=== PATIENT | female | born 1955 | race Caucasian/White ===

== ENCOUNTER → 2018-07-21 15:48 | Outpatient (CLI) | payer SELFPAY ==
--- NOTE | 2018-07-21 16:00 | XR_ITS ---
XR chest employee HISTORY: Positive TB skin test ITS.REASON: + FOR TB REACTOR ORDERING PHYSICIAN: Referral Provider, PATIENT AGE: 63 years COMPARISON: None FINDINGS: The cardiomediastinal silhouette and pulmonary vascularity are within normal limits. The lungs are clear without infiltrates, suspicious nodules, or pleural effusions. No evidence of active aneurysm this process No acute bony abnormalities. IMPRESSION: Negative chest, no acute finding
== END ==
DX: R76.11 Nonspecific reaction to tuberculin skin test without active tuberculosis (principal)

== ENCOUNTER → 2018-09-23 15:23 | Outpatient (POV) | payer OTHER, SELFPAY | PROVIDERS: Visit Provider Dermatology | DX: Z00.00 Encounter for general adult medical examination without abnormal findings (principal) ==

== ENCOUNTER → 2018-09-30 16:48 | Outpatient (CLI) | payer OTHER, SELFPAY ==
[2018-09-30 19:01] LABS: Creatinine,Urine Random 126 mg/dL (20-320)
[2018-09-30 19:31] LABS: Alanine Aminotransferase 30 U/L (12-78); Alkaline Phosphatase 80 U/L (46-116); Anion Gap 16.1 mEq/L (5-15); Aspartate Amino Transferase 13 U/L (15-37); Bilirubin,Total 0.2 mg/dL (0.2-1.0); Blood Urea Nitrogen 19 mg/dL (7-18); Calcium 9.2 mg/dL (8.5-10.1); Carbon Dioxide 24 mmol/L (21.0-32.0); Chloride 103 mmol/L (98-107); Cholesterol 237 mg/dL (140-200); Creatinine,Serum 0.63 mg/dL (0.55-1.02); Estimated Glomerular Filt Rate 95 ml/min (>60); GFR (African American) 115 ML/MIN (>60); Globulin 3.9 gm/dl (1.3-3.2); Glucose 91 mg/dL (74-106); HDL Cholesterol 47 mg/dL (29-89); LDL Cholesterol 164 mg/dL (0-130); Potassium 4.1 mmoL/L (3.5-5.1); Sodium 139 mmol/L (136-145); Thyroid Stimulating Hormone 2.25 uIU/ml (0.358-3.740); Total Protein,Serum 7.9 gm/dL (6.4-8.2); Triglycerides 129 mg/dL (30-200); Uric Acid 6.4 mg/dL (2.6-7.2); VLDL Cholesterol 26 mg/dL (0-40)
[2018-10-03 08:08] LABS: Vitamin D 25 Hydroxy 31.5 ng/mL (30.0-100.0)
[2018-10-03 08:09] LABS: Microalbumin, Urine 7.1 ug/mL (Not Estab.)
== END ==
PROVIDERS: Visit Provider Family Medicine
DX: I10 Essential (primary) hypertension (principal); E78.00 Pure hypercholesterolemia, unspecified; E55.9 Vitamin D deficiency, unspecified
CPT/HCPCS: 36415; 80053; 80061; 82043; 82570; 82652; 84443; 84550

== ENCOUNTER → 2018-10-31 20:22 | Outpatient (CLI) | payer OTHER, SELFPAY | PROVIDERS: PCP Family Medicine; Visit Provider Family Medicine | DX: G47.33 Obstructive sleep apnea (adult) (pediatric) (principal) | CPT/HCPCS: 95811 ==

== ENCOUNTER → 2018-12-24 17:30 | Outpatient (CLI) | payer OTHER, SELFPAY | PROVIDERS: Visit Provider Podiatrist | DX: B35.1 Tinea unguium (principal) | CPT/HCPCS: 87102; 87206; 87220 ==

== ENCOUNTER → 2018-12-30 16:36 | Outpatient (CLI) | payer OTHER, SELFPAY | PROVIDERS: PCP Family Medicine; Visit Provider Specialist | DX: G47.33 Obstructive sleep apnea (adult) (pediatric) (principal) | CPT/HCPCS: 94762 ==

== ENCOUNTER → 2019-03-06 07:28 | Outpatient (CLI) | payer OTHER, SELFPAY ==
[2019-03-06 08:12] LABS: Anion Gap 13.1 mEq/L (5-15); Blood Urea Nitrogen 22 mg/dL (7-18); Calcium 9.7 mg/dL (8.5-10.1); Carbon Dioxide 28 mmol/L (21.0-32.0); Chloride 104 mmol/L (98-107); Creatinine,Serum 0.86 mg/dL (0.55-1.02); Estimated Glomerular Filt Rate 66 ml/min (>60); GFR (African American) 80 ML/MIN (>60); Glucose 101 mg/dL (74-106); Potassium 4.1 mmoL/L (3.5-5.1); Sodium 141 mmol/L (136-145)
[2019-03-06 08:23] LABS: Basophils # 0.1 K/mm3 (0-0.2); Basophils % 0.5 % (0.1-2.0); Eosinophils # 0.2 K/mm3 (0.0-0.4); Eosinophils % 1.7 % (0.1-12.0); Hematocrit 40.4 % (37.0-47.0); Lymphocytes # 3.3 K/mm3 (0.7-4.5); Mean Corpuscular HGB Conc 32.1 g/dL (31.8-35.4); Mean Corpuscular Hemoglobin 29.8 pg (27.0-31.2); Mean Corpuscular Volume 92.8 fl (81-99); Monocytes # 0.4 K/mm3 (0.1-1.0); Monocytes % 4.3 % (1.7-9.3); Neutrophils # 6.1 K/mm3 (1.8-7.8); Neutrophils % 60.5 % (37.0-80.0); Platelet Count 226 K/mm3 (142-424); Red Blood Count 4.35 M/mm3 (4.20-5.40); White Blood Count 10.1 K/mm3 (4.8-10.8)
== END ==
PROVIDERS: Visit Provider Internal Medicine
DX: I25.10 Atherosclerotic heart disease of native coronary artery without angina pectoris (principal); I10 Essential (primary) hypertension; E78.2 Mixed hyperlipidemia; R06.02 Shortness of breath
CPT/HCPCS: 36415; 80048; 85025

== ENCOUNTER 2019-03-19 16:13 | Outpatient (RCR) | payer OTHER, SELFPAY | END 2019-04-27 13:21 | disposition home or self-care (01) | LOC: PT 16:13 | PROVIDERS: Visit Provider Internal Medicine Cardiovascular Disease | DX: I25.10 Atherosclerotic heart disease of native coronary artery without angina pectoris (principal); I10 Essential (primary) hypertension; E78.2 Mixed hyperlipidemia | CPT/HCPCS: 93798 ==

== ENCOUNTER → 2019-04-03 07:46 | Outpatient (CLI) | payer OTHER, SELFPAY ==
[2019-04-03 08:47] LABS: Alanine Aminotransferase 32 U/L (12-78); Albumin Level 3.7 gm/dL (3.4-5.0); Alkaline Phosphatase 76 U/L (46-116); Aspartate Amino Transferase 14 U/L (15-37); Bilirubin,Direct 0.1 mg/dL (0.0-0.2); Bilirubin,Indirect 0.3 mg/dL (0.0-0.9); Bilirubin,Total 0.4 mg/dL (0.2-1.0); Chol/HDL Ratio 2.7 (1-3.5); Cholesterol 135 mg/dL (140-200); HDL Cholesterol 50 mg/dL (29-89); LDL Cholesterol 65 mg/dL (0-130); Total Protein,Serum 7.2 gm/dL (6.4-8.2); Triglycerides 102 mg/dL (30-200); VLDL Cholesterol 20 mg/dL (0-40)
== END ==
PROVIDERS: Visit Provider Internal Medicine Cardiovascular Disease
DX: E78.2 Mixed hyperlipidemia (principal); I25.10 Atherosclerotic heart disease of native coronary artery without angina pectoris; I10 Essential (primary) hypertension
CPT/HCPCS: 36415; 80061; 80076

== ENCOUNTER → 2019-08-04 08:02 | Outpatient (CLI) | payer OTHER, SELFPAY ==
[2019-08-04 09:54] LABS: Alanine Aminotransferase 24 U/L (12-78); Alkaline Phosphatase 69 U/L (38-126); Aspartate Amino Transferase 24 U/L (14-36); Bilirubin,Indirect 0.3 mg/dL (0.0-0.9); Bilirubin,Total 0.3 mg/dl (0.2-1.3); Bilirubin,Unconjugated 0.5 mg/dL (0.0-1.1); Cholesterol 185 mg/dl (140-200); Total Protein,Serum 6.9 g/dl (6.3-8.2); Triglycerides 131 mg/dl (30-150); VLDL Cholesterol 26 mg/dL (0-40)
[2019-08-04 09:55] LABS: Chol/HDL Ratio 3.6 (1-3.5); HDL Cholesterol 51 mg/dl (40-60)
== END ==
PROVIDERS: Visit Provider Urology
DX: E78.5 Hyperlipidemia, unspecified (principal); G47.33 Obstructive sleep apnea (adult) (pediatric); I10 Essential (primary) hypertension; I25.10 Atherosclerotic heart disease of native coronary artery without angina pectoris; Z99.89 Dependence on other enabling machines and devices
CPT/HCPCS: 36415; 80061; 80076

== ENCOUNTER → 2019-08-07 14:51 | Outpatient (CLI) | payer OTHER, SELFPAY ==
--- NOTE | 2019-08-07 14:52 | CA_ITS ---
APPROVED REPORT Marketing Consultant: MANNY Laterality: Bilateral Study Quality: Good Indications: cad, family Hx, bruit on exam Doppler Spectral Velocity Analysis dICA (R) 93.30/34.30 cm/s dICA (L) 110.70/36.90 cm/s Neil (R) 98.60/29.90 cm/s Neil (L) 104.60/30.80 cm/s pICA (R) 91.80/34.30 cm/s pICA (L) 145.60/55.90 cm/s dCCA (R) 129.00/43.80 cm/s dCCA (L) 84.70/28.90 cm/s pCCA (R) 118.80/38.30 cm/s pCCA (L) 84.50/32.40 cm/s Vert (R) 55.10/15.70 cm/s Vert (L) 57.40/13.10 cm/s ICA/CCA 0.80 ICA/CCA 1.70 Findings The right carotid arterial system appeared to be normal without stenosis of the bulb or internal carotid artery. The left carotid arterial system appeared to be normal without stenosis of the bulb or internal carotid artery. Antegrade flow seen bilateral vertebral arteries. Technically difficult exam secondary to patient's ability to lie on back and continually swallowing making it difficult to keep doppler in vessels Conclusion No increased velocities to suggest hemodynamically significant stenosis in either internal carotid artery. Electronically signed by : Miguel Garibay MD 08/07/2019 15:51:26
== END ==
PROVIDERS: PCP Family Medicine; Visit Provider Physician Assistant
DX: R09.89 Other specified symptoms and signs involving the circulatory and respiratory systems (principal)
CPT/HCPCS: 93880

== ENCOUNTER → 2020-02-02 09:36 | Outpatient (CLI) | payer MEDICARE, SELFPAY ==
[2020-02-02 10:14] LABS: Basophils % 0.4 % (0.1-2.0); Eosinophils # 0.1 K/mm3 (0.0-0.4); Eosinophils % 1.5 % (0.1-12.0); Hematocrit 39.3 % (37.0-47.0); Lymphocytes # 3.2 K/mm3 (0.7-4.5); Mean Corpuscular HGB Conc 35.5 g/dL (31.8-35.4); Mean Corpuscular Hemoglobin 31.6 pg (27.0-31.2); Mean Corpuscular Volume 89.2 fl (81-99); Mean Platelet Volume 8.2 fl (7.4-10.4); Monocytes # 0.5 K/mm3 (0.1-1.0); Neutrophils # 5.4 K/mm3 (1.8-7.8); Neutrophils % 58.1 % (37.0-80.0); Platelet Count 221 K/mm3 (142-424); Red Blood Count 4.41 M/mm3 (4.20-5.40); Red Cell Distribution Width 13.9 % (11.5-17.5); White Blood Count 9.2 K/mm3 (4.8-10.8)
[2020-02-02 10:58] LABS: Alanine Aminotransferase 29 U/L (12-78); Albumin Level 4.4 g/dl (3.5-5.0); Alkaline Phosphatase 93 U/L (38-126); Aspartate Amino Transferase 30 U/L (14-36); Bilirubin,Direct 0.1 mg/dl (0.0-0.4); Bilirubin,Indirect 0.4 mg/dL (0.0-0.9); Bilirubin,Total 0.5 mg/dl (0.2-1.3); Bilirubin,Unconjugated 0.4 mg/dL (0.0-1.1); Chol/HDL Ratio 3.2 (1-3.5); Cholesterol 162 mg/dl (140-200); HDL Cholesterol 51 mg/dl (40-60); Total Protein,Serum 7.6 g/dl (6.3-8.2); Triglycerides 176 mg/dl (30-150); VLDL Cholesterol 35 mg/dL (0-40)
[2020-02-02 10:59] LABS: Anion Gap 13.7 mEq/L (5-15); Blood Urea Nitrogen 18 mg/dl (7-17); Calcium 10.2 mg/dl (8.4-10.2); Carbon Dioxide 32 mmol/L (22.0-30.0); Chloride 97 mmol/L (98-107); Estimated Glomerular Filt Rate 84 ml/min (>60); GFR (African American) 102 ML/MIN (>60); Glucose 113 mg/dl (74-100); Potassium 3.7 mmoL/L (3.5-5.1); Sodium 139 mmol/L (136-145)
[2020-02-02 11:09] LABS: Direct LDL Cholesterol 85.44 mg/dL (100-129)
== END ==
PROVIDERS: Physician Assistant; Visit Provider Urology
DX: E78.2 Mixed hyperlipidemia (principal); G47.33 Obstructive sleep apnea (adult) (pediatric); I10 Essential (primary) hypertension; I25.10 Atherosclerotic heart disease of native coronary artery without angina pectoris; R06.02 Shortness of breath; R11.0 Nausea; R53.1 Weakness; R53.83 Other fatigue; R60.9 Edema, unspecified; Z87.891 Personal history of nicotine dependence; Z99.89 Dependence on other enabling machines and devices; E78.5 Hyperlipidemia, unspecified; Z79.899 Other long term (current) drug therapy
CPT/HCPCS: 36415; 80048; 80061; 80076; 85025

== ENCOUNTER → 2020-09-20 08:29 | Outpatient (POV) | payer MEDICARE, SELFPAY | PROVIDERS: Visit Provider Dermatology | DX: Z00.00 Encounter for general adult medical examination without abnormal findings (principal) ==

== ENCOUNTER → 2020-10-03 07:20 | Outpatient (CLI) | payer MEDICARE, SELFPAY ==
--- NOTE | 2020-10-03 07:26 | NM_ITS ---
APPROVED REPORT Exam: Nuclear Stress Test Indication: OBESITY, HTN, HYPERLIPIDEMIA,FM HX, C.P., SOB Patient Location: Outpatient Stress Tech: Stephanie Adhikari [facility] Tech:Indigo Moy ARRT RT (R)(N)(M) Ht: 5 ft 2 in Wt: 256 lbs Bra Size: DD HR: 74 bpm BP: 130/68 mmHg BSA: 2.12 m2 BMI: 46.8 History: OBESITY, HTN, HYPERLIPIDEMIA,FM HX, C.P., SO Procedure: Patient received a 0.4 mg of intravenous Lexiscan, resting heart rate 74 bpm, resting blood pressure 130/68 mmHg, with Lexiscan maximum heart rate achived was 99 bpm which is Less than 85 % of the maximum predicted heart rate and blood pressure was 157/78 mmHg. PT C/O C.P. Electrocardiogram Resting electrocardiogram showed sinus rhythm, with Lexiscan there is less than 1.[address] segment depression noted from the baseline EKG. The EKG portion of the Lexiscan is nondiagnostic. Cardiac Stress and Resting SPECT Images: Cardiac Stress and Resting SPECT images were obtained using technetium 99m Myoview 31.9 mCi stress and 10.21 mCi at rest. Gated SPECT for analysis of segmental wall motion and calculation of the ejection fraction also done. Cardiac stress and resting SPECT images show uniform myocardial activity without segmental perfusion abnormality, computer derived ejection fraction is over 65% with no regional wall motion abnormality, right ventricle is normal size and contractility. Conclusion: 1. The EKG portion of the Lexiscan is nondiagnostic. 2. No scintigraphic evidence of reversible ischemia seen, computer derived ejection fraction is over 65% with no regional wall motion abnormality, right ventricle is normal size and contractility. 3. Normal Lexiscan Myoview study. Electronically signed by : Aleksey Wakefield, 10/03/2020 17:26:01
--- NOTE | 2020-10-03 09:46 | CA_ITS ---
APPROVED REPORT EXAM: Comprehensive 2D, Doppler, and color-flow Echocardiogram Lens Mold Setter: Jodie Antunez RT(R) Ht: 5 ft 2 in Wt: 256lbs BSA: 2.12 BP: 161/98 mmHg Indications: SOB, CP, ex smoker, fatigue, edema, HTN, hyperlipidemia, EUSEBIO, CAD, GERD 2D Dimensions LVOT 2.02 cm (M/F) 1.5-2.5 LA Volume 32.90 mL LA Volume Index 15.51 mL/m2 (M/F) 16-34 M-Mode Dimensions RVDd 2.61 cm (0.9-2.6) LA Diam 3.67 cm (1.9-4.0) LVDd 5.06 cm (3.5-5.7) Ao Diam 2.50 cm (2.0-3.7) LVDs 3.74 cm (3.5-5.7) IVSd 0.80 cm (0.6-1.1) PWd 0.96 cm (0.6-1.1) EF (Teich) 51.00% FS 26.10% EDV (Teich) 121.60 mL ESV (Teich) 59.60 mL LV Diastology E Decel Time 250.00 (160-240 msec) E/A Ratio 0.8 MED E' 4.70 (< 7 cm/sec) E'/MED E' Ratio 17.09 (>14) LAT E' 7.20 (<10 cm/sec) E/LAT E' Ratio 11.15 (>14) Mitral Valve MV E Max Juan. 80.00 (40-130 cm/s) MV A Velocity 96.00 (40-130 cm/s) E/A Ratio 0.84 MV Decel. Time 250.00 (160-240 ms) MV PHT 73.00 ms Left Ventricle Left atrium is mildly enlarged, left ventricle is normal size, mild concentric left ventricular hypertrophy, visually estimated ejection fraction 55% with no regional wall motion abnormality, grade 1 diastolic dysfunction seen without tissue Doppler evidence of raise left atrial pressure. Right Ventricle Right atrium and right ventricle are normal size and contractility. Aortic Valve Aortic valve is minimally thickened and fibrosed, there is no aortic stenosis or aortic insufficiency. Mitral Valve Mitral valve grossly normal, there is trace mitral regurgitation. Tricuspid Valve Tricuspid grossly normal, there is trace tricuspid regurgitation, tricuspid regurgitation jet velocity is inadequate for calculation of the right ventricular systolic pressure. Pulmonic Valve Pulmonic valve is poorly visualized. Great Vessels Aortic root is normal size. Pericardium No significant pericardial effusion noted. Conclusion 1. Mildly enlarged left atrium, normal left ventricular size, mild concentric left ventricular hypertrophy, visually estimated ejection fraction 55% with no regional wall motion abnormality, grade 1 diastolic dysfunction seen without tissue Doppler evidence of raise left atrial pressure. 2. Trace mitral and tricuspid regurgitation. 3. No significant pericardial effusion noted. Electronically signed by : Aleksey Wakefield, 10/03/2020 14:02:28
--- NOTE | 2020-10-03 09:47 | CA_ITS ---
APPROVED REPORT Exam: Pharmacologic Technologist: Stephanie Adhikari, Ht: 5 ft 2 in Wt: 256 lbs BSA: 2.12 m2 HR: 74 bpm BP: 130/68 mmHg Medical History Medications: Aspirin,,,,, Losartan,,,,, Atorvastatin,,,,, HCTZ,,,,, CloPIdogrel,,,,, Toprol XL,,,,, Stress Test Details Test: LEXISCAN HR Resting HR: 74 bpm Max Heart Rate (APMHR): 154.990984 bpm Max HR Achieved: 108 bpm Target HR (85% APMHR): 130.325516 bpm % of APMHR: 70.13 Recovery HR: 81 bpm BP Resting BP: 130/68 mmHg Max BP: 157/78 mmHg Recovery BP: 129.0/75.0 mmHg ECG Resting ECG: NSR Clinical Reason for Termination: Completed Protocol Exercise duration: 04:01 min Highest Stage Achieved: Stress ECG Conclusion Symptoms: Chest tightness. Chest tightness improved. Arrythmias/Ectopy: None ST-T Changes: <1.5mm ST Segment changes. Conclusion: Non-Diagnostic Electronically signed by : Aleksey Wakefield, 10/03/2020 15:03:47
== END ==
PROVIDERS: PCP Family Medicine; Visit Provider Internal Medicine Cardiovascular Disease
DX: E78.2 Mixed hyperlipidemia (principal); G47.33 Obstructive sleep apnea (adult) (pediatric); I10 Essential (primary) hypertension; I25.10 Atherosclerotic heart disease of native coronary artery without angina pectoris; R06.02 Shortness of breath; R11.0 Nausea; R53.1 Weakness; R53.83 Other fatigue; R60.9 Edema, unspecified; Z87.891 Personal history of nicotine dependence; Z99.89 Dependence on other enabling machines and devices
CPT/HCPCS: 78452; 93017; 93306; A9502; J2785

== ENCOUNTER → 2020-10-11 10:31 | Outpatient (CLI) | payer MEDICARE, SELFPAY ==
[2020-10-11 11:09] LABS: Chloride 101 mmol/L (98-107); Sodium 139 mmol/L (136-145)
[2020-10-11 11:10] LABS: Potassium 3.7 mmoL/L (3.5-5.1)
[2020-10-11 11:12] LABS: Blood Urea Nitrogen 18 mg/dl (7-17); Estimated Glomerular Filt Rate 100 ml/min (>60); GFR (African American) 121 ML/MIN (>60)
[2020-10-11 11:13] LABS: Anion Gap 11.7 mEq/L (5-15); Calcium 9.9 mg/dl (8.4-10.2); Carbon Dioxide 30 mmol/L (22.0-30.0); Glucose 117 mg/dl (74-100)
[2020-10-11 11:23] LABS: NT Pro Brain Natriuretic Pep. 34.8 pg/mL (0-125)
== END ==
PROVIDERS: Visit Provider Internal Medicine Cardiovascular Disease
DX: E78.2 Mixed hyperlipidemia (principal); I10 Essential (primary) hypertension; I25.10 Atherosclerotic heart disease of native coronary artery without angina pectoris; R06.02 Shortness of breath; R53.1 Weakness; R53.83 Other fatigue; R60.9 Edema, unspecified; Z87.891 Personal history of nicotine dependence
CPT/HCPCS: 36415; 80048; 83880

== ENCOUNTER → 2020-10-27 09:58 | Outpatient (CLI) | payer MEDICARE, SELFPAY ==
[2020-10-27 10:44] LABS: Anion Gap 10.7 mEq/L (5-15); Blood Urea Nitrogen 15 mg/dl (7-17); Calcium 9.3 mg/dl (8.4-10.2); Carbon Dioxide 28 mmol/L (22.0-30.0); Chloride 103 mmol/L (98-107); Creatine Kinase 137 U/L (30-135); Estimated Glomerular Filt Rate 84 ml/min (>60); GFR (African American) 101 ML/MIN (>60); Glucose 196 mg/dl (74-100); Potassium 3.7 mmoL/L (3.5-5.1); Sodium 138 mmol/L (136-145)
== END ==
PROVIDERS: Visit Provider Physician Assistant
DX: E66.01 Morbid (severe) obesity due to excess calories (principal); E78.5 Hyperlipidemia, unspecified; G47.33 Obstructive sleep apnea (adult) (pediatric); I10 Essential (primary) hypertension; I25.10 Atherosclerotic heart disease of native coronary artery without angina pectoris; M79.89 Other specified soft tissue disorders; Z99.89 Dependence on other enabling machines and devices; R06.02 Shortness of breath; R07.9 Chest pain, unspecified; R53.1 Weakness; R53.83 Other fatigue; R60.9 Edema, unspecified; Z87.891 Personal history of nicotine dependence; Z68.42 Body mass index [BMI] 45.0-49.9, adult
CPT/HCPCS: 36415; 80048; 82550

== ENCOUNTER → 2021-10-13 11:00 | Outpatient (CLI) | payer MEDICARE, SELFPAY ==
[2021-10-13 11:51] LABS: Basophils # 0.1 K/mm3 (0-0.2); Basophils % 1.3 % (0.1-2.0); Eosinophils # 0.1 K/mm3 (0.0-0.4); Eosinophils % 1.1 % (0.1-12.0); Hematocrit 39.8 % (37.0-47.0); Hemoglobin 13.4 g/dL (12.2-16.2); Lymphocytes # 3.3 K/mm3 (0.7-4.5); Mean Corpuscular HGB Conc 33.7 g/dL (31.8-35.4); Mean Corpuscular Hemoglobin 31.1 pg (27.0-31.2); Mean Corpuscular Volume 92.1 fl (81-99); Mean Platelet Volume 8.8 fl (7.4-10.4); Monocytes # 0.5 K/mm3 (0.1-1.0); Monocytes % 5.5 % (1.7-9.3); Neutrophils # 5.5 K/mm3 (1.8-7.8); Platelet Count 238 K/mm3 (142-424); Red Blood Count 4.32 M/mm3 (4.20-5.40); Red Cell Distribution Width 14.2 % (11.5-17.5); White Blood Count 9.6 K/mm3 (4.8-10.8)
[2021-10-13 12:36] LABS: Alanine Aminotransferase 38 U/L (12-78); Albumin Level 4.2 g/dl (3.5-5.0); Alkaline Phosphatase 90 U/L (38-126); Anion Gap 10.9 mEq/L (5-15); Aspartate Amino Transferase 38 U/L (14-36); Bilirubin,Indirect 0.2 mg/dL (0.0-0.9); Bilirubin,Total 0.2 mg/dl (0.2-1.3); Bilirubin,Unconjugated 0.5 mg/dL (0.0-1.1); Blood Urea Nitrogen 19 mg/dl (7-17); Calcium 10.4 mg/dl (8.4-10.2); Carbon Dioxide 31 mmol/L (22.0-30.0); Chloride 100 mmol/L (98-107); Cholesterol 139 mg/dl (140-200); Estimated Glomerular Filt Rate 83 ml/min (>60); GFR (African American) 101 ML/MIN (>60); Glucose 156 mg/dl (74-100); HDL Cholesterol 46 mg/dl (40-60); Magnesium 1.8 mg/dl (1.6-2.3); Potassium 3.9 mmoL/L (3.5-5.1); Sodium 138 mmol/L (136-145); Total Protein,Serum 6.8 g/dl (6.3-8.2); Triglycerides 144 mg/dl (30-150); VLDL Cholesterol 29 mg/dL (0-40)
[2021-10-13 12:44] LABS: NT Pro Brain Natriuretic Pep. 30.3 pg/mL (0-125)
[2021-10-13 12:47] LABS: Direct LDL Cholesterol 65.06 mg/dL (100-129)
[2021-10-13 12:51] LABS: Free T4 (Free Thyroxine) 0.87 ng/dl (0.78-2.19)
[2021-10-13 13:06] LABS: Thyroid Stimulating Hormone 3.55 uIU/mL (0.465-4.68)
== END ==
PROVIDERS: Visit Provider Internal Medicine Cardiovascular Disease
DX: I10 Essential (primary) hypertension (principal); I34.0 Nonrheumatic mitral (valve) insufficiency; I51.9 Heart disease, unspecified; R53.83 Other fatigue; R06.09 Other forms of dyspnea
CPT/HCPCS: 36415; 80048; 80061; 80076; 83735; 83880; 84439; 84443; 85025

== ENCOUNTER 2022-08-18 18:05 | Emergency (ER) | payer MEDICARE, SELFPAY ==
[2022-08-18 18:15] VITALS: BP 145/88; PULSE 93; RESP 18; TEMP 37; O2SAT 97; BMI 45.7
[2022-08-18 18:37] LABS: Apearance,Urine Cloudy (Clear); Bilirubin,Urine 2+ (Negative); Blood, Urine 3+ (Negative); Color,Urine Red (Yellow); Glucose,Urine (UA) 100 (Negative); Ketones,Urine TRACE (Negative); Protein,Urine 3+ (Negative); Urobilinogen,Urine 2 EU/dl (0.2)
[2022-08-18 18:38] LABS: UTC Leukocyte Esterase,Urine 3+ (Negative); UTC Nitrate,Urine Positive (Negative)
[2022-08-18 18:39] VITALS: BP 145/88; PULSE 93; RESP 18; TEMP 37; O2SAT 97
--- NOTE | 2022-08-18 18:50 | EXP.UTC ---
Discharge Plan Disposition Patient Disposition: Home, Self-Care Condition: Good Prescriptions Prescriptions: New cephalexin [cephalexin] 500 mg tablet 500 mg PO BID 7 Days Qty: 14 0RF No Action aspirin [Adult Low Dose Aspirin] 81 mg tablet,delayed release (DR/EC) 81 mg PO DAILY cholecalciferol (vitamin D3) 50 mcg (2,000 unit) capsule 50 mcg PO DAILY zinc sulfate [Orazinc] 50 mg zinc (220 mg) capsule 50 mg PO DAILY famotidine [Pepcid] 20 mg tablet 20 mg PO DAILY PRN (Reason: gerd) Qty: 90 3RF atorvastatin 40 mg tablet 40 mg PO DAILY Qty: 90 3RF hydrochlorothiazide 50 mg tablet 50 mg PO DAILY Qty: 90 3RF metoprolol succinate 25 mg tablet extended release 24 hr 25 mg PO DAILY Qty: 90 3RF losartan 100 mg tablet See Rx Instructions .ROUTE .COMPLEX Qty: 90 2RF Dose Instruction: TAKE 1 TABLET BY MOUTH DAILY Rx Instructions: TAKE 1 TABLET BY MOUTH DAILY clopidogrel 75 mg tablet See Rx Instructions .ROUTE .COMPLEX Qty: 90 1RF Dose Instruction: TAKE 1 TABLET BY MOUTH ONCE DAILY Rx Instructions: TAKE 1 TABLET BY MOUTH ONCE DAILY spironolactone [Aldactone] 25 mg tablet 25 mg PO DAILY Qty: 90 3RF potassium chloride [Klor-Con 10] 10 mEq tablet extended release 10 meq PO DAILY Qty: 30 5RF Referrals Follow up/Referrals: Agnes Pena PA [Primary Care Provider] - See instructions Activity Restrictions/Add. Instructions Additional Instructions/Restrictions: Increase fluids, water and not soda or tea. Can drink cranberry juice or cranberry extract. White front to back Wear cotton underwear Empty bladder after intercourse Start antibiotics immediately and make sure you take the full course although you may start to see improvement over the next 48 hours. You can eat yogurt or take probiotics to decrease diarrhea or yeast infection caused by the antibiotic Be sure to follow-up anytime for new or worsening symptoms in 48 hours for wound urine culture results be sure to let you PCP no recent urine for culture so they can request records and ensure that you have appropriate antibiotic if you are not getting better or getting worse. If symptoms worsen or do not improve return or be seen in the ER. Follow-up with primary care this week. Clinical Impressions Clinical Impression: Acute UTI Instructions Patient Instructions: DI for Urinary Tract Infection (UTI) Discharge ED Provider: Jeffery ([facility])Sam [facility] [place] General Stated complaint: possible uti Mode of Arrival: Ambulatory Source of Information: Patient Limitations: No Limitations Time Seen by Provider: 08/18/22 18:51 Description of Symptoms (Recalled from Triage Doc. by RN): PATIENT C/O PAIN AND BLOOD WITH URINATION X 2 DAYS HEENT Symptoms (Recalled from RN notes): No Resp Symptoms (Recalled from RN notes): No Skin Symptoms (Recalled from RN notes): No MS Symptoms (Recalled from RN notes): No Functional Status (Recalled from RN notes): WNL History of Present Illness Provider Complaint: 67 yr old female presents for burning, freq, urgency and bloody urine for 2 days Related Data Home Medications Medication Instructions Recorded Confirmed aspirin 81 mg tablet,delayed 81 mg PO DAILY 02/19/19 06/28/22 release (Adult Low Dose Aspirin) cholecalciferol (vitamin D3) 50 50 mcg PO DAILY 03/07/22 06/28/22 mcg (2,000 unit) capsule zinc sulfate 50 mg zinc (220 mg) 50 mg PO DAILY 03/07/22 06/28/22 capsule (Orazinc) Previous Rx's Medication Instructions Recorded atorvastatin 40 mg tablet 40 mg PO DAILY #90 tabs 10/05/21 hydrochlorothiazide 50 mg tablet 50 mg PO DAILY #90 tabs 10/05/21 metoprolol succinate 25 mg 25 mg PO DAILY #90 tabs 10/05/21 tablet,extended release 24 hr losartan 100 mg tablet See Rx Instructions .Route 03/06/22 .COMPLEX #90 tabs clopidogrel 75 mg tablet See Rx Instructions .Route 03/29/22 .COMPLEX #90 tabs spironolactone 25 mg tablet 25 mg PO
== END 2022-08-18 19:03 | disposition home or self-care (01) ==
PROVIDERS: Emergency Provider Nurse Practitioner Family; PCP Student in an Organized Health Care Education/Training Program
DX: N39.0 Urinary tract infection, site not specified (principal); R31.9 Hematuria, unspecified; B96.20 Unspecified Escherichia coli [E. coli] as the cause of diseases classified elsewhere; I10 Essential (primary) hypertension; E78.5 Hyperlipidemia, unspecified; Z87.891 Personal history of nicotine dependence
CPT/HCPCS: 81003; 87086; 87088; 87186; 99212; 99214; G0463

== ENCOUNTER → 2022-12-20 11:30 | Outpatient (CLI) | payer MEDICARE, SELFPAY ==
[2022-12-20 13:31] LABS: Alanine Aminotransferase 25 U/L (12-78); Albumin Level 4.2 g/dl (3.5-5.0); Alkaline Phosphatase 91 U/L (38-126); Anion Gap 12.1 mEq/L (5-15); Aspartate Amino Transferase 24 U/L (14-36); Bilirubin,Indirect 0.2 mg/dL (0.0-0.9); Bilirubin,Total 0.2 mg/dl (0.2-1.3); Bilirubin,Unconjugated 0.5 mg/dL (0.0-1.1); Blood Urea Nitrogen 15 mg/dl (7-17); Calcium 9.5 mg/dl (8.4-10.2); Carbon Dioxide 29 mmol/L (22.0-30.0); Chloride 104 mmol/L (98-107); Chol/HDL Ratio 2.8 (1-3.5); Cholesterol 123 mg/dl (140-200); Estimated Glomerular Filt Rate 83 ml/min (>60); GFR (African American) 101 ML/MIN (>60); Glucose 99 mg/dl (74-100); HDL Cholesterol 44 mg/dl (40-60); Potassium 4.1 mmoL/L (3.5-5.1); Sodium 141 mmol/L (136-145); Total Protein,Serum 6.8 g/dl (6.3-8.2); Triglycerides 146 mg/dl (30-150); VLDL Cholesterol 29 mg/dL (0-40)
[2022-12-20 13:42] LABS: Direct LDL Cholesterol 61.99 mg/dL (100-129)
[2022-12-20 13:48] LABS: Free T4 (Free Thyroxine) 0.91 ng/dl (0.78-2.19)
[2022-12-20 14:03] LABS: Thyroid Stimulating Hormone 1.75 uIU/mL (0.465-4.68)
[2022-12-20 16:33] LABS: Basophils % 0.3 % (0.1-2.0); Eosinophils # 0.2 K/mm3 (0.0-0.4); Eosinophils % 2.1 % (0.1-12.0); Hematocrit 38.5 % (37.0-47.0); Hemoglobin 12.1 g/dL (12.2-16.2); Lymphocytes # 3.1 K/mm3 (0.7-4.5); Lymphocytes % 32.3 % (10-50); Mean Corpuscular HGB Conc 31.5 g/dL (31.8-35.4); Mean Corpuscular Hemoglobin 28.8 pg (27.0-31.2); Mean Corpuscular Volume 91.5 fl (81-99); Mean Platelet Volume 8.5 fl (7.4-10.4); Monocytes # 0.5 K/mm3 (0.1-1.0); Monocytes % 4.9 % (1.7-9.3); Neutrophils # 5.7 K/mm3 (1.8-7.8); Neutrophils % 60.4 % (37.0-80.0); Platelet Count 204 K/mm3 (142-424); Red Blood Count 4.21 M/mm3 (4.20-5.40); Red Cell Distribution Width 14.1 % (11.5-17.5); White Blood Count 9.5 K/mm3 (4.8-10.8)
== END ==
PROVIDERS: PCP Student in an Organized Health Care Education/Training Program; Visit Provider Nurse Practitioner Family
DX: E66.01 Morbid (severe) obesity due to excess calories (principal); E78.5 Hyperlipidemia, unspecified; I25.10 Atherosclerotic heart disease of native coronary artery without angina pectoris; R06.00 Dyspnea, unspecified; I11.9 Hypertensive heart disease without heart failure; I63.9 Cerebral infarction, unspecified; Z68.41 Body mass index [BMI] 40.0-44.9, adult
CPT/HCPCS: 36415; 80048; 80061; 80076; 84439; 84443; 85025

== ENCOUNTER → 2023-02-05 08:51 | Outpatient (POV) | payer MEDICARE, SELFPAY | PROVIDERS: Visit Provider Dermatology | DX: Z00.00 Encounter for general adult medical examination without abnormal findings (principal) ==

== ENCOUNTER → 2023-03-13 10:53 | Outpatient (CLI) | payer MEDICARE, SELFPAY ==
[2023-03-13 12:20] LABS: MANUAL DIFFERENTIAL MANUAL DIFFERENTIAL (MANUAL DIFF)
[2023-03-13 12:31] LABS: Basophils % 0.5 % (0.1-2.0); Eosinophils # 0.1 K/mm3 (0.0-0.4); Eosinophils % 1.4 % (0.1-12.0); Hematocrit 39.7 % (37.0-47.0); Hemoglobin 13.7 g/dL (12.2-16.2); Lymphocytes # 2.9 K/mm3 (0.7-4.5); Lymphocytes % 37.3 % (10-50); Mean Corpuscular HGB Conc 34.5 g/dL (31.8-35.4); Mean Corpuscular Hemoglobin 30.9 pg (27.0-31.2); Mean Corpuscular Volume 89.7 fl (81-99); Mean Platelet Volume 8.7 fl (7.4-10.4); Monocytes # 0.4 K/mm3 (0.1-1.0); Monocytes % 5.2 % (1.7-9.3); Neutrophils # 4.3 K/mm3 (1.8-7.8); Neutrophils % 55.6 % (37.0-80.0); Platelet Count 198 K/mm3 (142-424); Red Blood Count 4.42 M/mm3 (4.20-5.40); Red Cell Distribution Width 14.7 % (11.5-17.5); White Blood Count 7.7 K/mm3 (4.8-10.8)
[2023-03-13 12:32] LABS: Alanine Aminotransferase 30 U/L (12-78); Albumin Level 4.5 g/dl (3.5-5.0); Albumin/Globulin Ratio 1.7 (1.1-1.8); Alkaline Phosphatase 78 U/L (38-126); Aspartate Amino Transferase 29 U/L (14-36); Bilirubin,Total 0.3 mg/dl (0.2-1.3); Blood Urea Nitrogen 20 mg/dl (7-17); Calcium 9.8 mg/dl (8.4-10.2); Carbon Dioxide 31 mmol/L (22.0-30.0); Chloride 102 mmol/L (98-107); Estimated Glomerular Filt Rate 83 ml/min (>60); GFR (African American) 101 ML/MIN (>60); Globulin 2.6 g/dL (1.3-3.2); Glucose 108 mg/dl (74-100); Sodium 140 mmol/L (136-145); Total Protein,Serum 7.1 g/dl (6.3-8.2)
[2023-03-13 15:00] LABS: Lymphocytes % 47 % (10-50); Monocytes % 5 % (2-9); Neutrophils % 48 % (42-76); Platelet Estimate Normal; RBC Morphology Normal; Total Cells Counted 100
== END ==
PROVIDERS: PCP Nurse Practitioner Family; Visit Provider Nurse Practitioner Family
DX: I10 Essential (primary) hypertension (principal); R53.83 Other fatigue; Z01.812 Encounter for preprocedural laboratory examination
CPT/HCPCS: 36415; 80053; 85007; 85014; 85018; 85048; 85049

== ENCOUNTER 2023-11-06 11:30 | Outpatient (CLI) | payer MEDICARE, SELFPAY ==
[2023-11-06 11:58] LABS: Basophils # 0.1 K/mm3 (0-0.2); Basophils % 0.8 % (0.1-2.0); Eosinophils # 0.1 K/mm3 (0.0-0.4); Eosinophils % 1.2 % (0.1-12.0); Hematocrit 43.1 % (37.0-47.0); Hemoglobin 14.4 g/dL (12.2-16.2); Lymphocytes # 3.1 K/mm3 (0.7-4.5); Lymphocytes % 25.5 % (10-50); Mean Corpuscular HGB Conc 33.3 g/dL (31.8-35.4); Mean Corpuscular Volume 93.1 fl (81-99); Mean Platelet Volume 8.5 fl (7.4-10.4); Monocytes # 0.5 K/mm3 (0.1-1.0); Monocytes % 4.3 % (1.7-9.3); Neutrophils # 8.4 K/mm3 (1.8-7.8); Neutrophils % 68.3 % (37.0-80.0); Platelet Count 228 K/mm3 (142-424); Red Blood Count 4.63 M/mm3 (4.20-5.40); Red Cell Distribution Width 14.7 % (11.5-17.5); White Blood Count 12.3 K/mm3 (4.8-10.8)
[2023-11-06 14:22] LABS: Chloride 102 mmol/L (98-107); Potassium 4.2 mmoL/L (3.5-5.1); Sodium 139 mmol/L (136-145)
[2023-11-06 14:24] LABS: Bilirubin,Unconjugated 0.2 mg/dL (0.0-1.1); Blood Urea Nitrogen 26 mg/dl (7-17); Estimated Glomerular Filt Rate 71 ml/min (>60); GFR (African American) 86 ML/MIN (>60)
[2023-11-06 14:25] LABS: Alanine Aminotransferase 24 U/L (12-78); Albumin Level 4.4 g/dl (3.5-5.0); Alkaline Phosphatase 70 U/L (38-126); Anion Gap 13.2 mEq/L (5-15); Aspartate Amino Transferase 26 U/L (14-36); Bilirubin,Direct 0.2 mg/dl (0.0-0.4); Bilirubin,Indirect 0.2 mg/dL (0.0-0.9); Bilirubin,Total 0.4 mg/dl (0.2-1.3); Calcium 10.1 mg/dl (8.4-10.2); Carbon Dioxide 28 mmol/L (22.0-30.0); Chol/HDL Ratio 2.6 (1-3.5); Cholesterol 156 mg/dl (140-200); Glucose 91 mg/dl (74-100); HDL Cholesterol 60 mg/dl (40-60); Total Protein,Serum 7.1 g/dl (6.3-8.2); Triglycerides 135 mg/dl (30-150); VLDL Cholesterol 27 mg/dL (0-40)
[2023-11-06 14:37] LABS: Direct LDL Cholesterol 76.18 mg/dL (100-129)
[2023-11-06 14:57] LABS: Thyroid Stimulating Hormone 1.59 uIU/mL (0.465-4.68)
== END 2023-11-06 23:59 | disposition home or self-care (01) ==
LOC: LAB 11:31
PROVIDERS: PCP Student in an Organized Health Care Education/Training Program; Visit Provider Nurse Practitioner Family
DX: K21.9 Gastro-esophageal reflux disease without esophagitis (principal); I11.9 Hypertensive heart disease without heart failure; I25.10 Atherosclerotic heart disease of native coronary artery without angina pectoris; E66.01 Morbid (severe) obesity due to excess calories; E78.2 Mixed hyperlipidemia; R06.00 Dyspnea, unspecified; Z68.38 Body mass index [BMI] 38.0-38.9, adult; Z87.891 Personal history of nicotine dependence
CPT/HCPCS: 36415; 80048; 80061; 80076; 84439; 84443; 85025

== ENCOUNTER 2024-01-21 15:24 | Outpatient (POV) | payer MEDICARE, SELFPAY | END 2024-01-21 23:59 | disposition home or self-care (01) | LOC: SC 15:24 | PROVIDERS: Visit Provider Specialist/Technologist | DX: Z00.00 Encounter for general adult medical examination without abnormal findings (principal) ==

== ENCOUNTER 2024-11-05 11:55 | Outpatient (CLI) | payer MEDICARE, SELFPAY ==
[2024-11-05 12:49] LABS: Basophils % 0.5 % (0.1-2.0); Eosinophils # 0.2 Kmm3 (0.0-0.4); Eosinophils % 2.1 % (0.1-12.0); Hematocrit 40.9 % (37.0-47.0); Hemoglobin 13.4 g/dL (12.2-16.2); Immature Granulocytes # 0.01 10^3uL; Immature Granulocytes % 0.1 %; Lymphocytes # 2.7 K/mm3 (0.7-4.5); Lymphocytes % 31.5 % (10-50); Mean Corpuscular HGB Conc 32.8 g/dL (31.8-35.4); Mean Corpuscular Hemoglobin 30.5 pg (27.0-31.2); Mean Corpuscular Volume 93.2 fl (81-99); Mean Platelet Volume 11.1 fl (7.4-10.4); Monocytes # 0.6 K/mm3 (0.1-1.0); Monocytes % 7.3 % (1.7-9.3); Neutrophils % 58.5 % (37.0-80.0); Nucleated Red Blood Cells # 0 10^3/uL; Nucleated Red Blood Cells % 0 %; Platelet Count 187 K/mm3 (142-424); Red Blood Count 4.39 M/mm3 (4.20-5.40); Red Cell Distribution Width 13.5 % (11.5-17.5); Red Cell Distribution Width-SD 46.5 fL; White Blood Count 8.6 K/mm3 (4.8-10.8)
[2024-11-05 13:34] LABS: Albumin Level 4.4 g/dl (3.5-5.0); Chloride 105 mmol/L (98-107); Potassium 4.2 mmoL/L (3.5-5.1); Sodium 142 mmol/L (136-145)
[2024-11-05 13:36] LABS: Blood Urea Nitrogen 26 mg/dl (7-17); Estimated Glomerular Filt Rate 83 ml/min (>60); GFR (African American) 100 ML/MIN (>60)
[2024-11-05 13:37] LABS: Alanine Aminotransferase 23 U/L (12-78); Alkaline Phosphatase 62 U/L (38-126); Anion Gap 10.2 mEq/L (5-15); Aspartate Amino Transferase 25 U/L (14-36); Bilirubin,Direct 0.1 mg/dl (0.0-0.4); Bilirubin,Indirect 0.3 mg/dL (0.0-0.9); Bilirubin,Total 0.4 mg/dl (0.2-1.3); Bilirubin,Unconjugated 0.3 mg/dL (0.0-1.1); Calcium 9.7 mg/dl (8.4-10.2); Carbon Dioxide 31 mmol/L (22.0-30.0); Chol/HDL Ratio 2.5 (1-3.5); Cholesterol 149 mg/dl (140-200); Glucose 92 mg/dl (74-100); HDL Cholesterol 60 mg/dl (40-60); Magnesium 1.9 mg/dl (1.6-2.3); Total Protein,Serum 6.6 g/dl (6.3-8.2); Triglycerides 131 mg/dl (30-150); VLDL Cholesterol 26 mg/dL (0-40)
[2024-11-05 13:48] LABS: Direct LDL Cholesterol 52.26 mg/dL (100-129)
[2024-11-05 14:08] LABS: Thyroid Stimulating Hormone 1.94 uIU/mL (0.465-4.68)
[2024-11-05 15:53] LABS: Free T4 (Free Thyroxine) 0.96 ng/dl (0.78-2.19)
== END 2024-11-05 23:59 | disposition home or self-care (01) ==
LOC: LAB 11:55
PROVIDERS: Visit Provider Nurse Practitioner Family
DX: I25.10 Atherosclerotic heart disease of native coronary artery without angina pectoris (principal); I10 Essential (primary) hypertension
CPT/HCPCS: 36415; 80048; 80061; 80076; 83735; 84439; 84443; 85025

== ENCOUNTER 2024-11-18 10:20 | Outpatient (CLI) | payer MEDICARE, SELFPAY ==
--- NOTE | 2024-11-18 10:15 | CA_ITS ---
APPROVED REPORT EXAM: Comprehensive 2D, Doppler, and color-flow Echocardiogram Racing Secretary: Sharyn Pradhan RVT Ht: 5 ft 2 in Wt: 192lbs BSA: 1.88 BP: 107/64 mmHg Indications: CORONARY ARTERY DISEASE, LV FUNCTION 2D Dimensions LA Volume 46.10 mL LA Volume Index 24.52 mL/m2 (M/F) 16-34 M-Mode Dimensions RVDd 1.81 cm (0.9-2.6) LA Diam 3.89 cm (1.9-4.0) LVDd 4.83 cm (3.5-5.7) LVDs 3.42 cm (3.5-5.7) IVSd 0.89 cm (0.6-1.1) PWd 0.85 cm (0.6-1.1) EF (Teich) 55.90% FS 29.20% EDV (Teich) 109.10 mL TAPSE 2.26 (<1.7) ESV (Teich) 48.10 mL LV Diastology E Decel Time 213 (160-240 msec) E/A Ratio 0.7 Aortic Valve KRISTINA Index 1.68 cm2/m2 AoV Peak Juan. 133.0 (50-130 cm/s) AO Peak GR. 7.10 mmHg AO Mean GR. 4.00 (<5 mmHg) AO VTI 26.3 (18-25 cm) KRISTINA (VTI) 3.22 (2.5-4.5 cm2) Mitral Valve MV E Max Juan. 69.0 (40-130 cm/s) MV A Velocity 103.0 (40-130 cm/s) E/A Ratio 0.67 MV PHT 62.0 ms Pulmonary Valve PV Peak Velocity 73.0 (50-150 cm/s) Tricuspid Valve TR P. Velocity 229.00 cm/s RAP Estimate 10.00 mmHg RVSP 31.00 mmHg Left Ventricle The left ventricle is normal size. The left ventricular systolic function is normal. The left ventricular ejection fraction is within the normal range. There is increased LV wall thickness. There is normal LV segmental wall motion. Transmitral Doppler flow pattern suggests impaired LV relaxation. LVEF is 60%. Right Ventricle Right ventricle is mildly dilated. The right ventricular systolic function is normal. Atria Left atrium is mildly dilated. Right atrium is mildly dilated. There is no Doppler evidence of interatrial shunt. Aortic Valve The aortic valve is mildly thickened. There is no aortic valvular stenosis. Trace aortic regurgitation. Mitral Valve The mitral valve is normal in structure. No evidence of mitral valve stenosis. Trace mitral regurgitation. Tricuspid Valve Tricuspid valve is grossly normal in structure and function. Mild tricuspid regurgitation. RVSP 25-30 mmHg. Pulmonic Valve The pulmonary valve is normal in structure. Trace pulmonic regurgitation. Great Vessels The aortic root is normal in size. IVC is normal in size and collapses >50% with inspiration. Pericardium There is no pericardial effusion. Other Information Study Quality: Fair Conclusion Normal biventricular systolic function. Mild RV dilation. Mild biatrial dilation. Mild TR. Electronically signed by : Rachel Shook MD 11/22/2024 20:28:00
== END 2024-11-18 23:59 | disposition home or self-care (01) ==
LOC: RT 10:22
PROVIDERS: Visit Provider Nurse Practitioner Family
DX: I07.1 Rheumatic tricuspid insufficiency (principal); I25.10 Atherosclerotic heart disease of native coronary artery without angina pectoris; R94.31 Abnormal electrocardiogram [ECG] [EKG]
CPT/HCPCS: 93306